=== PATIENT | female | born 1955 | race Caucasian/White ===

== ENCOUNTER 2020-02-21 06:44 | Outpatient (CLI) | payer MEDICARE, OTHER, SELFPAY ==
--- NOTE | ~2020-02-21 | MR_ITS ---
EXAMINATION: MR lumbar spine wo [facility] EXAM DATE: 02/21/2020 08:45 INDICATION: Left hip and low back pain. TECHNIQUE: Multi-sequential, multiplanar MR images of the lumbar spine were obtained without contrast . Sagittal T1, T2, T2 fat saturation images. Axial T2 weighted images. Comparison is made to prior examination from 12/10/2016. FINDINGS: There is moderate lumbar levoscoliosis. There is chronic bilateral L3 spondylolysis with 9 mm anterolisthesis L4 on L5. There is 2 mm retrolisthesis L2 on L3, 3 mm anterolisthesis L4 on L5. Th ere is moderate to severe disc disease L3-S1. The conus medullaris terminates at the L1/2 level and h as normal signal intensity and morphology. There are no suspicious marrow signal abnormalities. Para spinal soft tissue is unremarkable. Level by level evaluation: T12-L1: Disc does not extend beyond the endplate margin. Facet arthropathy: Mild. Neural foraminal stenosis: No stenosis. Central canal stenosis: No stenosis. L1-L2: There is a mild diffuse disc bulge. Facet arthropathy: Mild. Neural foraminal stenosis: No stenosis. Central canal stenosis: No stenosis. L2-L3: There is a mild diffuse disc bulge. Facet arthropathy: Severe right, mild left. Neural foraminal stenosis: Mild to moderate bilateral. Central canal stenosis: Mild. L3-L4: There is a moderate diffuse disc bulge. Facet arthropathy: Severe. Neural foraminal stenosis: Moderate bilateral. Central canal stenosis: Moderate. L4-L5: There is a mild to moderate diffuse disc bulge. Facet arthropathy: Moderate but fused right, mild to moderate left. Neural foraminal stenosis: Moderate right, mild left. Central canal stenosis: Mild. L5-S1: There is a mild diffuse disc bulge. Facet arthropathy: Mild to moderate. Neural foraminal stenosis: Moderate to severe left, mild to moderate right. Central canal stenosis: Mild. IMPRESSION: 1. Chronic L3 spondylolysis with grade 2 anterolisthesis L3 on L4. 2. Moderate to severe L3-S1 disc disease. Reviewed, dictated and finalized at location B.
--- NOTE | ~2020-02-21 | MR_ITS ---
EXAMINATION: MR hip LT wo con DATE: 02/21/2020 08:45 INDICATION: Left hip pain TECHNIQUE: Magnetic resonance imaging (MRI) of the left hip was performed without intravenous contra st. Sequences included full-field axial PD-weighted FS FSE, axial fluid sensitive FSE STIR and T1-crystal ghted FSE, coronal of the pelvis with PD-weighted FS FSE and fluid sensitive FSE STIR, small field of view of the left hip with axial PD-weighted FS FSE, sagittal PD-weighted FS FSE and coronal PD weig hted FS FSE. Additional radial T1-weighted FGR oriented orthogonal to the acetabular rim were obtaine d for evaluation of the labrum. COMPARISON: None FINDINGS: Bones/labrum/cartilage: Linear fluid signal extending along a nondisplaced avulsion fracture line at the left greater trochan ter which separates the anterior facet footplate of the gluteus minimus tendons from the superior and posterior facet footplates of the gluteus medius medius tendon. Otherwise normal marrow signal. No o steonecrosis or pathologic marrow replacing process. There is bilateral decreased anterosuperior femo ral head neck offset. At the left anterosuperior femoral head junction there is mild cystic change nolen ggesting sequela of chronic cam-type femoral acetabular impingement. There is a tear at the base of t he anterosuperior acetabular labrum extending from the 1:00-12:00 position. Mild osteoarthritis at th e left hip with partial thickness cartilage loss resulting in mild nonuniform joint space narrowing m ost prominent posteriorly and with scattered chondral surface irregularity. Similar findings suggeste d at the right hip but not diagnostically evaluated on the larger field of view images. Lumbar spondy losis, see separate lumbar spine MRI report for further detail. Fluid: Symmetric physiologic amount of fluid within both hip joints. Soft tissues: No asymmetric muscle atrophy or abnormal muscle signal in the pelvis and visualized proximal thighs. The iliopsoas, gluteal and proximal hamstring tendons are normal. There is a region of prominent magn etic field artifact situated at the left anterior pelvic wall likely related to a reported pain pump. Limited evaluation of visceral organs of the pelvis is unremarkable. No pathologically enlarged pel pedro/inguinal lymphadenopathy. IMPRESSION: 1. Nondisplaced avulsion fracture of the posterior tip of the left greater trochanter involving the l eft gluteus medius insertion. 2. Mild left hip osteoarthritis and anterosuperior labral tear which may be related to cam-type femor al acetabular impingement given the bilateral decreased anterosuperior femoral head neck offset and c ystic change at the left anterior femoral head neck junction. Reviewed, dictated and finalized at location A. IMPRESSION: 1. Nondisplaced avulsion fracture of the posterior tip of the left greater troc hanter involving the left gluteus medius insertion. 2. Mild left hip osteoarthritis and anterosuperior labral tear which may be rel ated to cam-type femoral acetabular impingement given the bilateral decreased a nterosuperior femoral head neck offset and cystic change at the left anterior f emoral head neck junction.
== END 2020-02-21 06:45 | disposition home or self-care (01) ==
PROVIDERS: PCP Internal Medicine; Visit Provider Nurse Practitioner Family
DX: M16.12 Unilateral primary osteoarthritis, left hip (principal); M47.896 Other spondylosis, lumbar region; M51.36 Other intervertebral disc degeneration, lumbar region
CPT/HCPCS: 72148; 73721

== ENCOUNTER → 2020-08-20 13:38 | Outpatient (CLI) | payer MEDICARE, OTHER, SELFPAY ==
--- NOTE | ~2020-08-20 | XR_ITS ---
EXAMINATION: XR thoracic spine 3V EXAM DATE: 08/20/2020 14:20 INDICATION: Low back pain. TECHNIQUE: Frontal and lateral projections of the thoracic spine as well as lateral swimmers projecti on of the upper thoracic spine for interpretation. There is no prior study for comparison. FINDINGS: There is age indeterminate compression fracture of a lower thoracic level with mild to mod erate loss of this vertebral body height centrally and anteriorly, contributing to mild thoracic kyph osis. Mild thoracolumbar scoliosis. Bones appear osteopenic. There are no bony erosions identified. IMPRESSION: 1. Age-indeterminate lower thoracic mild to moderate compression fracture. Reviewed, dictated and finalized at location A.
--- NOTE | ~2020-08-20 | XR_ITS ---
EXAMINATION: XR lumbar spine min 4V EXAM DATE: 08/20/2020 14:20 INDICATION: Low back pain, felt pop yesterday after opening window. TECHNIQUE: Lumber spine frontal, lateral projections. Coned down frontal and lateral L5-S1 lumbar p rojections for interpretation. Additional lateral flexion and lateral extension projections obtained . There are no prior studies for comparison. FINDINGS: Study is limited due to body habitus and osteopenia. Also, there is a pain pump device obsc uring the sacrum. There is a right iliac stent probably the common iliac artery. Moderate levoscoliosis. There is about 9 mm anterolisthesis L3 on L4 with moderate to severe disc dis ease at this level. Difficult to determine whether or not there is spondylolysis due to the severe dejah mbar facet arthropathy. There is 7 mm anterolisthesis L4 on L5 with moderate to severe disc disease. Those prior to subluxations slightly decreased on the extension projection. Moderate disc disease at L5-S1. Mild at the upper lumbar levels. Sacrum, sacroiliac joints, sacral ar abdiel lines are intact. Lumbar vertebral body heights relatively well-maintained, no acute fracture l ine identified. IMPRESSION: 1. Sensitivity for acute fracture low, but no acute findings identified. 2. Grade 2 anterolisthesis L3 on L4 and grade 1 anterolisthesis L4 on L5 with moderate to severe dis c disease at these 2 levels. 3. Severe facet arthropathy. 4. Moderate levoscoliosis. Reviewed, dictated and finalized at location A. IMPRESSION: 1. Sensitivity for acute fracture low, but no acute findings identified. 2. Grade 2 anterolisthesis L3 on L4 and grade 1 anterolisthesis L4 on L5 with moderate to severe disc disease at these 2 levels. 3. Severe facet arthropathy. 4. Moderate levoscoliosis.
== END ==
PROVIDERS: Visit Provider Nurse Practitioner Family
DX: M47.817 Spondylosis without myelopathy or radiculopathy, lumbosacral region (principal); M48.07 Spinal stenosis, lumbosacral region; M41.9 Scoliosis, unspecified; S22.000A Wedge compression fracture of unspecified thoracic vertebra, initial encounter for closed fracture
CPT/HCPCS: 72072; 72110

== ENCOUNTER → 2020-08-27 09:25 | Outpatient (CLI) | payer MEDICARE, OTHER, SELFPAY ==
--- NOTE | ~2020-08-27 | MR_ITS ---
EXAMINATION: MR thoracic spine wo con EXAM DATE: 08/27/2020 10:08 INDICATION: Pain in thoracic spine pain in thoracic spine. TECHNIQUE: Multi-sequential, multiplanar MR images of the thoracic spine were obtained without contra st. Sagittal T1, T2, T2 fat saturation, axial T2 weighted images reviewed. Correlation is made to th oracic x-ray 08/20/2020. FINDINGS: There is right apical masslike opacity measuring approximately 2 cm, differential diagnosis including scarring and cancer. Correlation was made with chest CT from 2003, and there was an opacit y on that exam but may have been slightly higher. Still could be the same opacity, scarring but recom mend chest CT without contrast for better evaluation. There is a mild compression fracture superior endplate of T9, and mild to moderate compression fractu re superior endplate of T10 without bone marrow edema. These are chronic. There is mild acute or suba cute burst fracture of T12 with about 2-3 mm retropulsion superior endplate. The spinal cord signal i ntensity and intrinsic morphology is normal. Conus terminates at the L1 level. Mild lower thoracic de xtroscoliosis, mild to moderate lumbar levoscoliosis. Thoracic central canal and neural foramen appea r widely patent. There is mild thoracic disc disease, facet arthropathy and scattered small disc prot rusions. Paraspinal soft tissue is unremarkable. IMPRESSION: 1. Right apical 2 cm opacity, could be scarring correlating with prior exams but recommend chest CT without contrast for better evaluation. 2. T12 acute or subacute burst fracture, mild loss of this vertebral body height. 3. Chronic T9 and T10 compression fractures. 4. Mild thoracic spondylosis. Reviewed, dictated and finalized at location A. IMPRESSION: 1. Right apical 2 cm opacity, could be scarring correlating with prior exams b ut recommend chest CT without contrast for better evaluation. 2. T12 acute or subacute burst fracture, mild loss of this vertebral body heig ht. 3. Chronic T9 and T10 compression fractures. 4. Mild thoracic spondylosis.
== END ==
PROVIDERS: Visit Provider Nurse Practitioner Family
DX: M54.6 Pain in thoracic spine (principal); S22.081A Stable burst fracture of T11-T12 vertebra, initial encounter for closed fracture; M48.54XA Collapsed vertebra, not elsewhere classified, thoracic region, initial encounter for fracture; M47.814 Spondylosis without myelopathy or radiculopathy, thoracic region
CPT/HCPCS: 72146

== ENCOUNTER → 2020-08-31 07:15 | Outpatient (CLI) | payer MEDICARE, OTHER, SELFPAY ==
[2020-08-31 19:39] LABS: SARS-CoV-2 RNA PCR Negative
== END ==
PROVIDERS: PCP Internal Medicine; Visit Provider Pain Medicine Pain Medicine
DX: Z01.812 Encounter for preprocedural laboratory examination (principal); Z20.822 Contact with and (suspected) exposure to COVID-19
CPT/HCPCS: C9803; U0003; U0005

== ENCOUNTER 2020-10-02 07:38 | Outpatient (CLI) | payer MEDICARE, OTHER, SELFPAY ==
--- NOTE | ~2020-10-02 | PE_ITS ---
EXAMINATION: PET skull to mid thigh DATE: 10/02/2020 09:33 INDICATION: Solitary nodule of the lung TECHNIQUE: Blood glucose level was 109 mg/dL. 9.68 mCi of 18-fluorodeoxyglucose (18-FDG) was administ ered i.v. Low dose computed tomography (CT) images were acquired from the base of the brain to the pr oximal thighs for attenuation correction and anatomic localization. Positron emission tomography (PET ) images were acquired in the same distribution beginning 55 minutes after injection. The dose-length product (DLP) was 214.57 mGy-cm. COMPARISON: None FINDINGS: Head/neck: No abnormal FDG uptake is identified. FDG uptake in the vocal cords without suspicious CT correlate is likely physiologic. Chest: There are airspace opacities of the lung apices without abnormal FDG uptake, consistent with s carring. There is moderate emphysema. A calcified nodule of the left lower lobe is consistent with ol d granulomatous disease. There is no pleural effusion or pneumothorax. The heart size is normal. Ther e is mild atelectasis of the lingula. No pathologically enlarged thoracic lymph nodes are identified. The heart size is normal. Abdomen/pelvis/proximal thighs: Physiologic FDG activity is present in the bowel and urinary tract. N o abnormal FDG uptake is identified. Punctate calcifications in an otherwise normal spleen likely rep resent healed granulomatous disease. The liver, pancreas, gallbladder, and adrenal glands are normal. The kidneys are unremarkable. There is calcified atherosclerosis of the aorta and many of the other arteries. A stent is present in the right common iliac artery. No pathologically enlarged abdominal o r pelvic lymph nodes are identified. There is no free intraperitoneal gas or evidence of bowel obstru ction. A surgical anastomosis is noted at the rectosigmoid junction. Musculoskeletal: There is FDG uptake associated with a subacute T12 burst fracture. There has been in terval vertebroplasty change at T12. There is grade 2 anterolisthesis of L3 on L4. There is severe lo ss of intervertebral disc space height at L5-S1. IMPRESSION: 1. Scarring in the right lung apex without abnormal FDG uptake accounting for the finding in question on MRI. Reviewed, dictated and finalized at location A. IMPRESSION: 1. Scarring in the right lung apex without abnormal FDG uptake accounting for t he finding in question on MRI.
[2020-10-02 08:19] LABS: Glucose Point of Care 109 (65-105)
== END 2020-10-02 07:39 | disposition home or self-care (01) ==
PROVIDERS: PCP Internal Medicine; Visit Provider Internal Medicine
DX: R91.1 Solitary pulmonary nodule (principal)
CPT/HCPCS: 78815; 82948; A9552

== ENCOUNTER → 2022-10-02 12:56 | Outpatient (CLI) | payer MEDICARE, OTHER, SELFPAY ==
--- NOTE | ~2022-10-02 | MR_ITS ---
EXAMINATION: MR thoracic spine wo con DATE: 10/02/2022 13:36 INDICATION: Thoracic spine fracture. TECHNIQUE: Magnetic resonance imaging (MRI) of the thoracic spine was performed without intravenous c ontrast. Sagittal localizer T1-weighted FSE of the cervicothoracic spine was obtained. Thoracic spine sequences included sagittal T2-weighted FSE, sagittal T1-weighted SE, Sagittal T2-weighted FS FSE, a nd axial T2-weighted FSE. COMPARISON: 08/27/2020 and PET/CT dated 10/02/2020 FINDINGS: Diffuse mild thoracic kyphosis. Chronic superior endplate compression fractures at T9 with 20% centra l vertebral body height loss and at T10 with 20% anterior and 40%central vertebral body height loss. Additional chronic T12 burst fracture with one third anterior to central vertebral body height loss 3 mm retropulsion resulting in mild central canal stenosis at this level.. Again seen is low signal in tensity methylmethacrylate in the T12 vertebral body consistent with prior vertebroplasty. There is n ormal marrow signal throughout with no other acute fracture or pathologic marrow replacing process.Th ere is mild disc height loss from T4-T5 through T7-T8 and [id number], L1-L2 and L2-L3. Associated mitch lar fissures with associated small disc extrusions resulting in mild central canal stenosis at T7-T8, T8-T9 and T10-T11. Disc bulges additional annular fissures also resulting in mild central canal sten osis at L1-L2 and L2-L3. There is mild ballooning of the disc space at T8-T9, T9-T10 and T11-T12 resu lting from the adjacent compression and burst fractures. There is mild multilevel facet osteoarthriti s without significant neural foraminal stenosis throughout much of the thoracic spine with moderate f acet osteoarthritis contributing to mild neural from stenosis at a few levels in the lower thoracic a nd upper lumbar spine. The conus terminates at L1-L2. The left paracentral disc extrusion at T10-T11 indents the left ventral surface of the cord. There is normal cord signal throughout. Again seen is a masslike region of chronic consolidation at the right apex which is without evident increased activi ty on prior CT most likely related to scarring. IMPRESSION: 1. A few unchanged chronic compression and burst fractures in the lower thoracic spine with change of prior vertebroplasty at T12. No acute osseous abnormality. 2. Mild thoracic and upper lumbar spondylosis. Reviewed, dictated and finalized at location A. IMPRESSION: 1. A few unchanged chronic compression and burst fractures in the lower thoraci c spine with change of prior vertebroplasty at T12. No acute osseous abnormalit y. 2. Mild thoracic and upper lumbar spondylosis.
== END ==
PROVIDERS: PCP Nurse Practitioner Family; Visit Provider Nurse Practitioner Family
DX: S22.081D Stable burst fracture of T11-T12 vertebra, subsequent encounter for fracture with routine healing (principal); M47.816 Spondylosis without myelopathy or radiculopathy, lumbar region; X58.XXXD Exposure to other specified factors, subsequent encounter
CPT/HCPCS: 72146

== ENCOUNTER 2023-02-20 19:56 | Emergency (ER) | payer MEDICARE, OTHER, SELFPAY ==
--- NOTE | ~2023-02-20 | CT_ITS ---
EXAMINATION: CT abdomen pelvis w con DATE: 02/20/2023 21:17 INDICATION: Abdominal pain and constipation. TECHNIQUE: Computed tomography (CT) of the abdomen and pelvis was performed with 100 mL Omnipaque 350 intravenous contrast. Automated exposure control and iterative reconstruction technique were employe d. The dose-length product was 168.11 mGy-cm. COMPARISON: PET/CT 10/02/2020 FINDINGS: The visualized portions of the lung bases demonstrate emphysema and scarring. Calcified karma ateral lung nodules are consistent with old granulomatous disease. No pleural effusion. The heart siz e is normal. No pericardial effusion. There are coronary artery calcifications. There is a 5 mm cyst in the liver. Calcifications in the spleen are consistent with old granulomatous disease. Pancreas di visum is noted. The adrenal glands and right kidney are normal. There is mild atrophy of left kidney. There is an anastomosis in the sigmoid colon. There is a moderate volume of stool in colon. There ar e no dilated loops of bowel. There is calcified atherosclerosis of the aorta and many of the other ar teries. There is a stent in right common iliac artery. There are no pathologically enlarged lymph nod es. There is no free intraperitoneal fluid. There is an intrathecal catheter. There are bilateral par s defects. There is severe lumbar spondylosis. There is a chronic burst fracture of T12 with changes of vertebroplasty. There is a chronic compression fracture of T10. IMPRESSION: 1. No etiology for the patient's symptoms. Reviewed, dictated and finalized at location E.
[2023-02-20 19:58] VITALS: BP 191/96; PULSE 90; RESP 19; TEMP 36.4; O2SAT 96
--- NOTE | 2023-02-20 20:21 | ED.ABDPAIN ---
HPI - Abdominal Pain General Chief Complaint: Abdominal Pain Stated Complaint: constipation Time Seen by Provider: 02/20/23 20:05 History of Present Illness HPI narrative: 67-year-old female presented the emergency department for evaluation of persistent constipation. 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 Patient states that since January she has had intermittent issues with constipation. Patient has been to [facility] recently and was told that she had constipation. Patient states she does not drink very much water. Patient states that she has been trying lactulose MiraLAX mag citrate and enemas in order to help with the constipation. Patient states she tried mag citrate today and did pass a small amount of stool. Related Data Allergies Allergy/AdvReac Type Severity Reaction Status Date / Time No Known Allergies Allergy Unverified 09/06/12 15:01 Review of Systems Review of Systems: All systems reviewed & are unremarkable except as noted in HPI and below Exam Narrative: APPEARANCE: Well appearing, no pain, no distress, well-nourished. HEAD: normocephalic, atraumatic. EYES: PERRLA/EOMI, conjunctivae clear. NOSE: Normal no drainage NECK: Supple. No adenopathy, no masses. RESPIRATORY: Airway patent, respirations nonlabored. Clear to auscultation bilaterally, no rales, rhonchi, wheezing. CARDIOVASCULAR: Regular rate and rhythm without murmurs rubs or gallops. ABDOMINAL: Soft, nontender, nondistended, normal bowel sounds MUSCULOSKELETAL: Moves all extremities. Strength/ROM intact, No edema, No calf tenderness. NEURO: Alert. Cranial nerves II through XII intact. SKIN: Warm, dry. Normal Color Course Course Emergency Course: 67-year-old female presented ED for evaluation of constipation. Patient is afebrile in December and a stable hemoglobin. No significant electrolyte abnormalities. CTA showed no evidence of obstruction but did show evidence of constipation. Patient was encouraged to continue taking lactulose MiraLAX and to increase her water intake. Patient was also encouraged of close follow-up with GI as scheduled. All questions concerns were addressed patient was comfortable with the plan for discharge and close follow-up Vital Signs Vital signs: Vital Signs Temperature 97.5 F L 02/20/23 19:58 Pulse Rate 90 02/20/23 19:58 Respiratory Rate 19 02/20/23 19:58 Blood Pressure 191/96 H 02/20/23 19:58 Pulse Oximetry 96 02/20/23 19:58 Oxygen Delivery Room Air 02/20/23 19:58 Temperature 97.5 F L 02/20/23 19:58 Pulse Rate 90 02/20/23 19:58 Respiratory Rate 19 02/20/23 19:58 Blood Pressure 191/96 H 02/20/23 19:58 Pulse Oximetry 96 02/20/23 19:58 Oxygen Delivery Room Air 02/20/23 19:58 MDM - Abdominal Pain Differential Diagnosis Differential diagnosis: Likely abdominal pain, constipation, diverticulitis, gastroenteritis, pancreatitis and small bowel obstruction Lab Data Attestation: I reviewed the patient's lab results. 02/20/23 20:25 02/20/23 20:25 Labs: Lab Results 02/20/23 Range/Units 20:25 WBC 6.7 (4.5-10.0) K/mm3 RBC 3.80 L (4.2-5.4) M/mm3 Hgb 12.5 (12.0-15.0) g/dL Hct 38.1 (37.0-47.0) % MCV 100.3 H (80-100) fl MCH 32.9 (26-34) pg MCHC 32.8 (32-36) g/dl RDW 12.9 (11.5-14.5) % Plt Count 212 (150-375) k/mm3 MPV 9.7 (7.4-10.4) fl Immature Gran % (Auto) 0.3 (0-0.5) % Neut % (Auto) 69.5 (45.5-73.1) % Lymph % (Auto) 21.7 (18.3-44.2) % Kane % (Auto) 6.2 (2.6-8.5) % Eos % (Auto) 1.9 (0-4.4) % Baso % (Auto) 0.4 (0.2-1.2) % Lymph # (Auto) 1.46 (0.9-3.2) K/mm3 Kane # (Auto) 0.4 (0.1-0.6) K/mm3 Eos # (Auto) 0.1 (0-0.3) K/mm3 Baso # (Auto) 0.0 (0.0-0.1) K/mm3 Abs Immat Gran (auto) 0.02 (0.00-0.031) K/mm3 Absolute Neuts (auto) 4.7 (1.3-6.7) K/mm3 Absolute Nucleated RBC 0.0 (0.0-0.012) K/mm3 Nucleate
[2023-02-20 20:32] LABS: Basophils Percent Auto 0.4 % (0.2-1.2); Eosinophils Absolute Auto 0.1 K/mm3 (0-0.3); Eosinophils Percent Auto 1.9 % (0-4.4); Hematocrit 38.1 % (37.0-47.0); Hemoglobin 12.5 g/dL (12.0-15.0); Immature Granulocyte Absolute 0.02 K/mm3 (0.00-0.031); Immature Granulocyte Percent A 0.3 % (0-0.5); Lymphocytes Absolute Auto 1.46 K/mm3 (0.9-3.2); Lymphocytes Percent Auto 21.7 % (18.3-44.2); Mean Corpuscular HGB Conc 32.8 g/dl (32-36); Mean Corpuscular Hemoglobin 32.9 pg (26-34); Mean Corpuscular Volume 100.3 fl (80-100); Mean Platelet Volume 9.7 fl (7.4-10.4); Monocytes Absolute Auto 0.4 K/mm3 (0.1-0.6); Monocytes Percent Auto 6.2 % (2.6-8.5); Neutrophils Absolute Auto 4.7 K/mm3 (1.3-6.7); Neutrophils Percent Auto 69.5 % (45.5-73.1); Platelet Count Result 212 k/mm3 (150-375); Red Cell Distribution Width 12.9 % (11.5-14.5); White Blood Count 6.7 K/mm3 (4.5-10.0)
[2023-02-20 20:35] LABS: Appearance Urine Clear (Clear); Bacteria Urine None Seen /hpf; Bilirubin Urine Negative (Negative); Blood Urine Negative (Negative); Color Urine Yellow (Yellow); Glucose Urine UA Negative (Negative); Ketones Urine Negative (Negative); Leukocyte Esterase Ur Trace LEU/UL (Negative); Nitrate Urine Negative (Negative); Non Pathogenic Casts 0-2; Protein Urine Negative (Negative); RBC Urine 0-2 /hpf (0-2); Specific Grav Ur 1.006 (1.001-1.035); Squamous Epithelial Cell Urine Occasional /hpf (Few); Urobilinogen Urine 0.2 mg/dL (<2.0); pH Urine 7.5 (5.0-9.0)
[2023-02-20 20:41] LABS: Add Urine Microscopic? YES
[2023-02-20 20:42] LABS: Alanine Aminotransferase 12 U/L (6-35); Alkaline Phosphatase 129 U/L (38-126); Anion Gap 4 mmol/L (8-16); Aspartate Amino Transferase 23 U/L (14-36); Bilirubin,Total 0.6 mg/dL (0.2-1.3); Blood Urea Nitrogen 12 mg/dL (7-17); Calcium 8.9 mg/dL (8.4-10.2); Carbon Dioxide 32 mmol/L (22-30); Chloride 97 mmol/L (98-107); Estimated CRCL calculation 36 ml/min; Estimated Glomerular Filt Rate > 60; Glucose 111 mg/dL (65-110); Potassium 4.1 mmol/L (3.4-5.0); Sodium 133 mmol/L (137-145)
[2023-02-20 20:43] LABS: Lactic Acid Reflex 0.8 mmol/L (0.7-2.0)
== END 2023-02-20 22:05 | disposition home or self-care (01) ==
PROVIDERS: Emergency Provider Emergency Medicine; PCP Nurse Practitioner Family
DX: K59.00 Constipation, unspecified (principal); R82.998 Other abnormal findings in urine
CPT/HCPCS: 36415; 74177; 80053; 81001; 83605; 85025; 87086; 99284; Q9967

== ENCOUNTER 2023-04-01 00:33 | Day surgery (SDC) | payer MEDICARE, OTHER, SELFPAY ==
[2023-03-27 11:10] VITALS: BMI 16.5
--- NOTE | 2023-03-30 09:48 | SUR.PREOP ---
Patient called regarding upcoming procedure. Reviewed preop instructions, appointment times, and procedure prep.
[2023-04-01 08:49] VITALS: BP 143/68; PULSE 99; RESP 16; TEMP 36.6; O2SAT 95; BMI 16.0
[2023-04-01] MEDS: LACTATED RINGERS 1,000 ML 150 ML IV CONT (09:09)
--- NOTE | 2023-04-01 09:24 | WPDANESEPPF ---
Anes - Initial Pre Proc Eval Procedure: Operation Date: 04/01/23 10:15 Proposed Procedures p Esophagogastroduodenoscopy & Colonoscopy - Perico Eldridge MD Date/Time: 04/01/23 09:24 Surgeon: Perico Eldridge MD Pre Op Diagnosis: Abnormal weight loss,Drug induced constipation Patient Data Age: 68 Gender: F Height: 1.57 m Weight: 39.8 kg Last Vital Signs Temp 98 F 04/01/23 08:49 Pulse 99 04/01/23 08:49 Resp 16 04/01/23 08:49 BP 143/68 H 04/01/23 08:49 Pulse Ox 95 04/01/23 08:49 O2 Del Method Room Air 04/01/23 08:49 Allergies Allergy/AdvReac Type Severity Reaction Status Date / Time TAPES AdvReac Intermediate Rash Uncoded 03/27/23 11:11 Home Medications Medication Instructions Recorded Confirmed Type albuterol sulfate 90 mcg/actuation 1 inh inhalation Q4-6H PRN 02/26/23 03/27/23 History breath activated powder inhaler Shortness Of Breath apixaban 2.5 mg tablet (Eliquis) 2.5 mg PO BID 02/26/23 03/27/23 History lisinopril 20 mg tablet 20 mg PO DAILY 02/26/23 03/27/23 History lorazepam 0.5 mg tablet 0.5 mg PO BID PRN Anxiety 02/26/23 03/27/23 History mirtazapine 45 mg tablet 45 mg PO DAILY 02/26/23 03/27/23 History morphine 30 mg/30 mL (1 mg/mL) 1 mg subcut ONCE 02/26/23 03/27/23 History intravenous FIG CAPRIFIER syringe trazodone 100 mg tablet 100 mg PO QHS 02/26/23 03/27/23 History cyclobenzaprine 10 mg tablet 10 mg PO TID PRN Spasms 03/27/23 03/27/23 History lactulose 10 gram/15 mL oral 15 ml PO DAILY PRN Constipation 03/27/23 03/27/23 History solution Patient hx anesthesia problems: none Family hx anesthesia problems: none Results Review: All pre-operative results and documents have been reviewed as part of the pre-operative evaluation. [facility] Past Medical History Medical History (Updated 02/26/23 @ 13:45 by Perico Eldridge MD) Anticoagulant long-term use Constipation due to opioid therapy COPD (chronic obstructive pulmonary disease) Early satiety Hx of blood clots Peripheral vascular disease Tobacco abuse Weight loss Social History Social History (Updated 02/26/23 @ 13:15 by Kristie Camacho CMA) Smoking packs per day: 1.5 Smoking cigarettes per day: 30.0 Years smoked: 50 Smoking pack-years: 75.00 Smoking status: Heavy tobacco smoker Tobacco type: cigarettes Additional smoking assessment comments: CURRENTLY TRYING TO QUIT- SINCE 01/2023 Alcohol intake: never Alcohol use details: social Substance use: current Substance use type: marijuana Other substance usage details: MEDICAL CARD- EDIBLES Living arrangements: with family Spiritual care concerns: No Anes - Eval Final PreProcedure Day of Procedure 04/01/23 09:24 Patient weight: normal Heart: regular rate and rhythm Lungs: clear to auscultation Airway: Mallampati scale class II Neurological: alert and oriented Last oral intake: >/= 8 hours ASA classification: III Emergent: no Anesthetic plan: proceed Anesthesia type and monitoring: general GIVS and standard monitoring Results Review: All pre-operative results and documents have been reviewed as part of the pre-operative evaluation. Informed Consent: The patient's anesthetic plan and its attendant risks and benefits were discussed with the patient/family/POA. Questions were solicited and answers provided to the satisfaction of the patient/family/POA.
--- NOTE | 2023-04-01 09:26 | PM.HPGS ---
History of Present Illness History of Present Illness Consent: Risks, benefits, and alternatives have been discussed and questions answered. Patient agrees to proceed with procedure. Chief complaint: Abnormal weight loss,Drug induced constipation Narrative: Becca Murray is a 68 year old female here for egd and colonoscopy, history of PAD s/p stents currently on eliquis (she was on coumadin but earlier this year had episode of bleeding- was told that source probably was lung), also chronic pain with pump using morphine with more constipation and weight loss. Review of Systems Constitutional: Constitutional: Denies headache(s) and Denies weakness Eyes: Eyes: Denies blurry vision ENT: Reports Normal hearing present, Denies headache(s) and Denies neck pain Cardiovascular: Cardiovascular: Denies chest pain and Denies dyspnea Respiratory: Respiratory: Denies dyspnea Gastrointestinal: Gastrointestinal: Reports no additional gastrointestinal complaints Genitourinary: Genitourinary: Denies dysuria Musculoskeletal: Musculoskeletal: Denies neck pain Integumentary/Breasts: Skin/Breast: Denies dry skin Neurologic: Reports Normal hearing present, Denies headache(s) and Denies weakness Psychiatric: Psychiatric: Denies anxiety Endocrine: Endocrine: Denies change in body appearance Hematologic/Lymphatic: Hematologic/Lymphatic: Denies easy bleeding Allergic/Immunologic: Allergic/Immunologic: Denies urticaria PMF Past Medical History Medical History (Updated 02/26/23 @ 13:45 by Perico Eldridge MD) Anticoagulant long-term use Constipation due to opioid therapy COPD (chronic obstructive pulmonary disease) Early satiety Hx of blood clots Peripheral vascular disease Tobacco abuse Weight loss Social History Social History (Updated 02/26/23 @ 13:15 by Kristie Camacho CMA) Smoking packs per day: 1.5 Smoking cigarettes per day: 30.0 Years smoked: 50 Smoking pack-years: 75.00 Smoking status: Heavy tobacco smoker Tobacco type: cigarettes Additional smoking assessment comments: CURRENTLY TRYING TO QUIT- SINCE 01/2023 Alcohol intake: never Alcohol use details: social Substance use: current Substance use type: marijuana Other substance usage details: MEDICAL CARD- EDIBLES Living arrangements: with family Spiritual care concerns: No Meds Home Medications and Allergies Home Medications Medication Instructions Recorded Confirmed Type albuterol sulfate 90 mcg/actuation 1 inh inhalation Q4-6H PRN 02/26/23 03/27/23 History breath activated powder inhaler Shortness Of Breath apixaban 2.5 mg tablet (Eliquis) 2.5 mg PO BID 02/26/23 03/27/23 History lisinopril 20 mg tablet 20 mg PO DAILY 02/26/23 03/27/23 History lorazepam 0.5 mg tablet 0.5 mg PO BID PRN Anxiety 02/26/23 03/27/23 History mirtazapine 45 mg tablet 45 mg PO DAILY 02/26/23 03/27/23 History morphine 30 mg/30 mL (1 mg/mL) 1 mg subcut ONCE 02/26/23 03/27/23 History intravenous [employer] syringe trazodone 100 mg tablet 100 mg PO QHS 02/26/23 03/27/23 History cyclobenzaprine 10 mg tablet 10 mg PO TID PRN Spasms 03/27/23 03/27/23 History lactulose 10 gram/15 mL oral 15 ml PO DAILY PRN Constipation 03/27/23 03/27/23 History solution Allergies Allergy/AdvReac Type Severity Reaction Status Date / Time TAPES AdvReac Intermediate Rash Uncoded 03/27/23 11:11 Vital Signs Vital Signs - 24 hr 04/01/23 08:49 Temperature 98 F Pulse Rate 99 Respiratory Rate 16 Blood Pressure 143/68 H Pulse Oximetry 95 Oxygen Delivery Room Air Exam Const: General: comfortable and no acute distress HENMT: Face/Nose/Sinus: Normal nares present Eyes: General: appearance normal, both eyes and all related structures Neck: Neck: no JVD Resp: Auscultation: clear to auscultation bilaterally Cardio: Rate: regular rate Rhythm: regular rhythm GI: Inspection: non-distended GI Palp: Yes Soft to palpation Skin: General
--- NOTE | 2023-04-01 10:11 | SUR.OPER ---
EGD started at 0935 and ended at 0943. Colonoscopy started at 0947 and ended at 1007.
[2023-04-01 10:12] VITALS: BP 135/63; PULSE 82; RESP 17; O2SAT 100
[2023-04-01 10:22] VITALS: BP 145/70; PULSE 82; RESP 14; O2SAT 100
[2023-04-01 10:32] VITALS: BP 148/73; PULSE 68; RESP 16; O2SAT 99
== END 2023-04-01 10:43 | disposition home or self-care (01) ==
PROVIDERS: PCP Internal Medicine; Visit Provider Internal Medicine Gastroenterology
PROC: 0DJ08ZZ Inspection of Upper Intestinal Tract, Via Natural or Artificial Opening Endoscopic (ICD-10-PCS; CPT 43235; principal; 2023-04-01 10:15)
DX: D12.2 Benign neoplasm of ascending colon (principal); D12.4 Benign neoplasm of descending colon; D12.3 Benign neoplasm of transverse colon; K57.30 Diverticulosis of large intestine without perforation or abscess without bleeding; K31.89 Other diseases of stomach and duodenum; D13.1 Benign neoplasm of stomach; R63.4 Abnormal weight loss; K59.03 Drug induced constipation; Z68.1 Body mass index [BMI] 19.9 or less, adult; J44.9 Chronic obstructive pulmonary disease, unspecified; F12.90 Cannabis use, unspecified, uncomplicated; I73.9 Peripheral vascular disease, unspecified; G89.29 Other chronic pain; F17.210 Nicotine dependence, cigarettes, uncomplicated; Z79.891 Long term (current) use of opiate analgesic; Z86.718 Personal history of other venous thrombosis and embolism; Z95.820 Peripheral vascular angioplasty status with implants and grafts; Z79.01 Long term (current) use of anticoagulants; Z79.51 Long term (current) use of inhaled steroids
CPT/HCPCS: 45385; 43239; 43251; 88305; J2371; J2704; J7120

== ENCOUNTER 2024-02-04 13:31 | Outpatient (CLI) | payer MEDICARE, OTHER, SELFPAY ==
--- NOTE | ~2024-02-04 | US_ITS ---
EXAMINATION: US venous doppler [facility] DATE: 02/04/2024 14:57 INDICATION: Lower limb edema. TECHNIQUE: Grayscale ultrasound images without and with compression and Doppler ultrasound images of the bilateral lower extremity veins were obtained. COMPARISON: None. FINDINGS: The visualized portions of right common femoral vein, profunda (deep) femoral vein, femoral vein, pop liteal vein, peroneal veins, posterior tibial veins, and greater saphenous vein outflow are patent. The visualized portions of left common femoral vein, profunda femoral vein, femoral vein, popliteal v ein, peroneal veins, posterior tibial veins, and greater saphenous vein outflow are patent. IMPRESSION: 1. No deep venous thrombosis. Reviewed, dictated and finalized at location A.
[2024-02-04 14:09] LABS: Basophils Percent Auto 0.4 % (0.2-1.2); Eosinophils Absolute Auto 0.1 K/mm3 (0-0.3); Eosinophils Percent Auto 1.3 % (0-4.4); Hematocrit 38.5 % (37.0-47.0); Hemoglobin 11.8 g/dL (12.0-15.0); Immature Granulocyte Absolute 0.01 K/mm3 (0.00-0.031); Immature Granulocyte Percent A 0.2 % (0-0.5); Lymphocytes Absolute Auto 0.61 K/mm3 (0.9-3.2); Mean Corpuscular HGB Conc 30.6 g/dl (32-36); Mean Corpuscular Hemoglobin 29.1 pg (26-34); Mean Corpuscular Volume 95.1 fl (80-100); Mean Platelet Volume 10.2 fl (7.4-10.4); Monocytes Absolute Auto 0.4 K/mm3 (0.1-0.6); Monocytes Percent Auto 8.3 % (2.6-8.5); Neutrophils Absolute Auto 3.6 K/mm3 (1.3-6.7); Neutrophils Percent Auto 76.8 % (45.5-73.1); Platelet Count Result 173 k/mm3 (150-375); Red Blood Count 4.05 M/mm3 (4.2-5.4); Red Cell Distribution Width 18.1 % (11.5-14.5); White Blood Count 4.7 K/mm3 (4.5-10.0)
[2024-02-04 14:45] LABS: Alanine Aminotransferase 8 U/L (6-35); Albumin Level 3.3 g/dL (3.5-5.1); Alkaline Phosphatase 158 U/L (38-126); Aspartate Amino Transferase 20 U/L (14-36); Bilirubin,Total 0.3 mg/dL (0.2-1.3); Blood Urea Nitrogen 29 mg/dL (7-17); Calcium 8.1 mg/dL (8.4-10.2); Carbon Dioxide > 40 mmol/L (22-30); Chloride 94 mmol/L (98-107); Estimated Glomerular Filt Rate 35; Glucose 114 mg/dL (65-110); Potassium 3.2 mmol/L (3.4-5.0); Sodium 138 mmol/L (137-145)
[2024-02-04 14:48] LABS: NT Pro B Type Natriuretic Pept 2450 pg/mL (19.9-100)
== END 2024-02-04 13:32 | disposition home or self-care (01) ==
LOC: ANHIMG 13:34
PROVIDERS: PCP Internal Medicine; Visit Provider Internal Medicine
DX: R60.0 Localized edema (principal); R06.00 Dyspnea, unspecified
CPT/HCPCS: 36415; 80053; 83880; 85025; 93970